=== PATIENT | female | born 1940 | race Caucasian/White ===

== ENCOUNTER 2018-03-05 01:30 | Inpatient (IN) | payer OTHER, MEDICARE ==
[~2018-03-05] VITALS: Ht 152.4 cm; Wt 81.6 kg
[~2018-03-05 01:30] MED LIST: ALLEGRA ALLERG180 M1 PO; DETROL LA2 M1 PO; EFFEXOR XR37.5 M1 PO; LYRICA100 M1 PO; METAMUCIL FIBE3.4 GM; MULTIVITAMINS1 EAC9 PO; NEXIUM20 M1 PO; NEXIUM40 M1 PO; NORVASC2.5 M1 PO; OMEGA 3-6-9 11200 MG PO; VITAMIN B-121000 MC3 PO; VITAMIN C500 M8; VITAMIN D1000 UNIT PO; ZESTORETIC 20-1 EAC1 PO
[2018-03-05] MEDS ORDERED: BACTRIM 400-801 EACH PO (09:59)
[2018-03-05] MEDS ORDERED: AMBIEN10 M1 PO (10:00)
--- NOTE | 2018-03-05 10:30 | Operative Report ---
Operative/Inv Procedure Report Surgery Date: 03/05/18 Name of Procedure: Right total hip arthroplasty Pre-Operative Diagnosis: Right hip primary osteoarthritis Post-Operative Diagnosis: Same with final pathology pending Estimated Blood Loss: 50ml to 100ml Surgeon/Scientific Associate: Marcelo COREAS,Ron Coronel Anesthesia: block Implants: Archbold secure fit femoral stem size 7 secure fit with a 132 neck angle Trident acetabulum size 52 36+0 Biolox femoral head Drains: None Specimens: Femoral head, acetabular reamings, soft tissue mass posterior lateral hip Microbiology: Urine Complications: None Condition: Stable Operative Indication: Patient is a 77-year-old woman with a long history of bilateral hip pain. She was being treated elsewhere for a period of time. She actually underwent a back surgery for treatment of her back problem but also lower extremity symptoms. Unfortunately, she had no significant relief of her lower extremity symptoms. Further evaluation was done. She was seen in our office for further evaluation and treatment. She was found to have degenerative changes of both hips. She was more symptomatically on the right side. Hip symptoms interfere with normal activities of daily living. She did get treatment conservatively for the hip but had only short-term relief. She wished to proceed with total hip arthroplasty after risks benefits and expectations were discussed which included but were not limited to persistent hip pain, need for subsequent surgery, infection, DVT, injury to blood vessel or nerve, anesthesia risks leg length discrepancy and dislocation. Patient did have recent abnormality in blood work due to a family history of coagulation problems. She had a IVC filter placed this past Monday to decrease risk of PE. She was evaluated by her vascular surgeon on Monday of last week and she was cleared by her medical doctor following placement of the IVC. Operative/Procedure Note Note: Patient was brought to the operating room and transferred to the operating table once under appropriate anesthesia the patient was placed into a left lateral decubitus position with right side up. All bony prominences were well-padded. Right lower extremity was prepped and draped in standard fashion. Preoperative IV antibiotic's were given prophylactically. A standard posterior lateral incision was made for anticipated superior approach to the hip. Incision was taken down sharply to the underlying fascia. The fascia was incised in line with the skin incision. Hip was internally rotated and piriformis was identified and reflected posteriorly. The posterior capsule was visualized. There appeared to be a soft tissue mass along the posterior lateral aspect of the hip above the femoral head. The capsule was incised. There was some adhesions to the underlying capsule. Capsule was tagged. The soft tissue mass was curetted out. It was not adhesed to the soft tissues above the hip and came out easily. This was sent as a separate specimen.. The superior and inferior portions of the posterior capsule were excised. Hip was dislocated. Severe degenerative changes of the femoral head were noted. Femoral neck cut was then made based on preoperative templating and intraoperative measurements. The acetabulum was then exposed with retractors anteriorly and inferiorly. Again end-stage general changes of the acetabular fossa were noted. Remaining degenerative labrum was excised circumferentially. Reaming started with a size 46 and advanced to a size 51 for anticipated insertion of a size 52 acetabular shell. I was satisfied with the reaming. I then used a size 50 trial to confirm circumferential reaming. I was satisfied that point. Copious irrigation of the acetabular fossa followed after the trial was removed. The definitive size 52 acetabular shell was impacted in place at the appropriate anteversion and abduction. This was based on anatomy as well as the RipCode tower. I then placed 2 screws in the safe zone in standard fashion by measuring and placing appropriate length screws. After irrigating the acetabular component I impacted the definitive liner to accept a 36 m femoral head. The locking mechanism was confirmed. I then placed a lap sponge in the acetabular fossa to protect the polyethylene during preparation of the proximal femur. The femur was then internally rotated 90 and flexed about 60. Retractors were placed. I then use a box osteotome to lateralize my insertion site. This was followed by hand reamers up to a size 7. I broached to a size 7. A left the last broach in place and did a trial reduction. The 132 neck angle match patient's anatomy. The hip was reduced. It was stable. No evidence of anterior instability with simultaneous extension and external rotation. No evidence of posterior stability with simultaneous internal rotation adduction and flexion to greater than 90. I then removed all trial components. Copious irrigation femoral canal followed. I then impacted the definitive size 7 femoral stem with a 132 neck angle. Excellent scratch fit. The trunnion was dried and then the definitive size 36+0 Biolox femoral head was impacted in place. The locking mechanism was confirmed. Hip was reduced. Again stability was confirmed. Leg lengths were confirmed. Closure started. Every level of closure was followed by copious irrigation. The capsule and piriformis were tacked back. Fascia was closed with interrupted #1 Vicryl suture. Subcutaneous tissues closed in 2 layers with 2-0 Vicryl and skin was closed with ruthie. Appropriate dressings were applied and patient was awakened and taken the recovery room in good condition. Blood loss was less than 100 mL Discharge Disposition: PACU
--- NOTE | 2018-03-05 13:42 | Admission Core Measures ---
Acute Coronary Syndrome (CM) ACS Core Measures Acute Coronary Syndrome Diagnosis No Congestive Heart Failure (NEW) CHF Core Measures Congestive Heart Failure Diagnosis No Cerebrovascular Accident CVA Core Measures CVA/TIA Diagnosis No Venous Thromboembolism VTE Core Fabiola (View Protocol) VTE Risk Factors Surgery No Mechanical VTE Prophylaxis d/t N/A MechProphylax Ordered No VTE Pharm Prophylaxis d/t NA PharmProphylax ordered Problem List As ranked by this Provider includes Assessment & Plan 1. Unilateral primary osteoarthritis, right hip HOME MEDS Home Med List Amlodipine (Norvasc) 2.5 MG TABLET 1 TAB PO DAILY HTN (Reported) Cholecalciferol (Vitamin D3) (Vitamin D) 1,000 UNIT TABLET 1 TAB PO DAILY SUPPLEMENT (Reported) Cyanocobalamin (Vitamin B-12) 1,000 MCG TABLET 1 TAB PO DAILY SUPPLEMENT ( Reported) Esomeprazole (Nexium) 40 MG CAPSULE.DR 1 CAP PO DAILY GERD/HIATAL HERNIA ( Reported) Esomeprazole Magnesium (Nexium) 20 MG CAPSULE.DR 1 CAP PO DAILY GERD/HIATAL HERNIA (Reported) Fexofenadine HCl (Princess Allergy) 180 MG TABLET 1 TAB PO DAILY ANTIHISTAMINE (Reported) Fish Oil/Borage/Flax/Om3,6,9#1 ([place] 3-6-9 1,200 MG Softgel) 1,200 MG CAPSULE 1 CAP PO DAILY SUPPLEMENT (Reported) Lisinopril/Hydrochlorothiazide (Zestoretic 20-25 MG Tablet) 20 MG-25 MG TABLET 1 TAB PO DAILY HTN (Reported) Multiple Vitamin (Multivitamins) 1 EACH TABLET 1 TAB PO DAILY SUPPLEMENT ( Reported) Pregabalin (Lyrica) 100 MG CAPSULE 1 CAP PO TID MOOD (Reported) Sulfamethoxazole/Trimethoprim (Bactrim 400-80 MG Tablet) 400 MG-80 MG TABLET 1 TAB PO BID UTI (Reported) Tolterodine Tartrate (Detrol LA) 2 MG CAP.ER.24H 1 CAP PO DAILY OAB (Reported ) Venlafaxine HCl (Effexor XR) 37.5 MG CAP.ER.24H 1 CAP PO DAILY MOOD (Reported ) Zolpidem Tartrate (Ambien) 10 MG TABLET 1 TAB PO QPMP SLEEP (Reported)
--- NOTE | 2018-03-05 13:47 | PN- Orthopedic ---
Subjective Subjective: POC Pt in PACU, no complaints of pain. Denies N/V, denies cp/sob/camp diaz in place, has no been OOB Objective Vital Signs and I&Os VSS, afebrile Physical Exam: gen- NAD resp- clear cardiac- rrr abd- soft, NT ext- R thign soft, dressing clean and dry. distal sensory and motor function intact Assessment/Plan Assessment/Plan 77yo F SP R NUSRAT POD0. stable prn pain management diaz to come out in AM reg diet, IVF to continue overnight dvt ppx- eliquis and alps. PT had IVF filter placed 03/02/18, access by R carotid PT- WBAT FU am labs dressing change POD2 reg home meds Core Measures Venous Thromboembolism VTE Risk Factors Surgery No Mechanical VTE Prophylaxis d/t N/A MechProphylax Ordered No VTE Pharm Prophylaxis d/t NA PharmProphylax ordered
[2018-03-05] MEDS ORDERED: PERCOCET 5-3251 EACH PO (13:51)
[2018-03-05] MEDS ORDERED: ELIQUIS2.5 M1 PO (13:51)
--- NOTE | 2018-03-05 13:54 | Patient Discharge Instructions ---
Discharge Instructions General Discharge Information You were seen/treated for: Right hip pain You had these procedures: Right total hip replacement Watch for these problems: Fever over 101, Drainage from wound, Increased redness and swelling around wound, Unable to bear weight on right lower extremity No bath, but you may shower: Yes Special Instructions: Daily dry dressing change Diet Continue normal diet: Yes Activity Activity Limited to: Weight bear as tolerated (with rolling walker) Acute Coronary Syndrome Inclusion Criteria At DC or during hospital stay patient has or had the following: ACS DIAGNOSIS No Discharge Core Measures Meds if any: Prescribed or Continued at Discharge Meds if any: NOT Prescribed or Continued at Discharge Congestive Heart Failure Inclusion Criteria At DC or during hospital stay patient has or had the following: CHF DIAGNOSIS No Discharge Core Measures Meds if any: Prescribed or Continued at Discharge Meds if any: NOT Prescribed or Continued at Discharge Cerebrovascular accident Inclusion Criteria At DC or during hospital stay patient has or had the following: CVA/TIA Diagnosis No Discharge Core Measures Meds if any: Prescribed or Continued at Discharge Meds if any: NOT Prescribed or Continued at Discharge Venous thromboembolism Inclusion Criteria VTE Diagnosis No VTE Type NONE VTE Confirmed by (Test) NONE Discharge Core Measures - Per Current guidelines, there needs to be overlap - treatment for the first 5 days of Warfarin therapy. - If discharged on Warfarin prior to 5 days of - overlap therapy, the patient will need to be - assessed for post discharge needs including - *Post discharge parental anticoagulation - *Warfarin and/or parental anticoagulation education - *Follow up date to check INR post discharge At least 5 days overlap therapy as Inpatient No Meds if any: Prescribed or Continued at Discharge Note: Overlap Therapy is Warfarin and Anticoagulant Meds if any: NOT Prescribed or Continued at Discharge
--- NOTE | 2018-03-05 13:55 | RADIOLOGY REPORT ---
EXAMINATION: XR HIP, RIGHT CLINICAL INFORMATION: Status post right total hip replacement. COMPARISON: None TECHNIQUE: AP portable view of the right hip. FINDINGS: Prosthetic components of the right total hip arthroplasty are appropriately aligned. No periprosthetic fracture. Gas from recent surgery is present in the surrounding soft tissues. Skin ruthie are present. IMPRESSION: Normal postoperative appearance of the right total hip prosthesis.
--- NOTE | 2018-03-05 13:58 | Surgical Discharge Summary ---
Visit Information Visit Dates Admission Date: 03/05/18 Discharge Date: 03/08/18 History of Present Illness Chief Complaint: Right hip pain Medical History Isolation History: Standard Surgical History Pertinent Surgical History: IVC filter placed on 03/02/2018 Review of Systems: As per [facility] Hospital Course Course Attending Physician: Marcelo COREAS,Homer Primary Care Physician: Oneil Brown MD Hospital Course: Patient presented to [facility] on 03/05/2018 for an elective right total hip replacement by Homer Robertson MD. Patient presents tolerated procedure well. Postoperatively her pain was well managed, she was tolerating a regular diet, she was voiding spontaneously, she was ambulating with physical therapy using a rolling walker and was cleared for discharge. She was instructed to follow-up in the office with Homer Robertson MD in 2 weeks and to call sooner if she had any questions or concerns. Discharge instructions were reviewed with the patient and she understood. Allergies: Coded Allergies: STATINS (leg pain 03/05/18) Disposition Summary Disposition Principal Diagnosis: Right hip osteoarthritis Additional Diagnosis: Status post right total hip replacement Discharge Disposition: home health services Discharge Instructions General Discharge Information Code Status: Full Code Patient's Diet: Regular diet Patient's Activity: Weight-bearing as tolerated with rolling walker Follow-Up Instructions/Appts: staple removal 2 weeks follow up with in 6 weeks Medications at Discharge Discharge Medications: Continue taking these medications: Amlodipine (Norvasc) 2.5 MG TABLET 1 Tablet ORAL DAILY Ascorbic Acid (Vitamin C) 500 MG TABLET Cholecalciferol (Vitamin D3) (Vitamin D) 1,000 UNIT TABLET 1 Tablet ORAL DAILY Cyanocobalamin (Vitamin B-12) 1,000 MCG TABLET 1 Tablet ORAL DAILY Esomeprazole (Nexium) 40 MG CAPSULE. 1 Capsule ORAL DAILY Fexofenadine HCl (Princess Allergy) 180 MG TABLET 1 Tablet ORAL DAILY Fish Oil/Borage/Flax/Om3,6,9#1 ([place] 3-6-9 1,200 MG Softgel) 1,200 MG CAPSULE 1 Capsule ORAL DAILY Lisinopril/Hydrochlorothiazide (Zestoretic 20-25 MG Tablet) 20 MG-25 MG TABLET 1 Tablet ORAL DAILY Multiple Vitamin (Multivitamins) 1 EACH TABLET 1 Tablet ORAL DAILY Pregabalin (Lyrica) 100 MG CAPSULE 1 Capsule ORAL THREE TIMES DAILY Psyllium Hydrophy Sugar Free (Metamucil Fiber Singles Packet) 3.4 GRAM POWD.PACK Tolterodine Tartrate (Detrol LA) 2 MG CAP.ER.24H 1 Capsule ORAL DAILY Venlafaxine HCl (Effexor XR) 37.5 MG CAP.ER.24H 1 Capsule ORAL DAILY Sulfamethoxazole/Trimethoprim (Bactrim 400-80 MG Tablet) 400 MG-80 MG TABLET 1 Tablet ORAL TWICE DAILY Zolpidem Tartrate (Ambien) 10 MG TABLET 1 Tablet ORAL Every night as needed Start taking the following new medications: Oxycodone HCl/Acetaminophen (Percocet 5-325 MG Tablet) 5 MG-325 MG TABLET 1-2 Tablet ORAL EVERY 4-6 HOURS as needed for postop pain Qty = 36 No Refills Apixaban (Eliquis) 2.5 MG TABLET 1 Tablet ORAL TWICE DAILY Qty = 84 No Refills Docusate Sodium (Colace) 100 MG CAPSULE 1 Capsule ORAL TWICE DAILY as needed for CONSTIPATION Qty = 60 No Refills Instructions: stool softener. hold for loose stool / diarrhea. Copies To: Stephanie COREAS,Oneil Baum
[2018-03-05 16:14] VITALS: BP 86/52
[2018-03-05 18:26] VITALS: BP 92/50
[2018-03-05 19:42] VITALS: BP 108/52
[2018-03-05 20:17] VITALS: BP 96/60
[2018-03-05 21:53] VITALS: BP 96/60
[2018-03-06 02:20] VITALS: BP 96/54
[2018-03-06 05:56] VITALS: BP 142/82
[2018-03-06 08:31] LABS: ABSOLUTE BASOPHIL COUNT 0 /CUMM (0.0-0.2); ABSOLUTE EOSINOPHIL COUNT 0 /CUMM (0.0-0.7); ABSOLUTE GRANULOCYTE CT 6.2 /CUMM (1.4-6.5); ABSOLUTE LYMPH COUNT 1.7 /CUMM (1.2-3.4); ABSOLUTE MONOCYTE COUNT 0.6 /CUMM (0.10-0.60); BASOPHIL % 0.3 % (0.0-2.0); EOSINOPHIL % 0.3 % (0-5); GRANULOCYTE % 72.8 % (42.2-75.2); HEMATOCRIT 31.6 % (37-47); MEAN CORPUSCULAR HGB 26.8 PG (27.0-31.0); MEAN CORPUSCULAR HGB CONC 32.9 G/DL (33.0-37.0); MEAN CORPUSCULAR VOLUME 81.5 FL (81.0-99.0); PLATELET COUNT 224 /CUMM (130-400); RBC DISTRIBUTION WIDTH 15.1 % (11.5-14.5); RED BLOOD CELL CT 3.88 /CUMM (4.20-5.40); WHITE BLOOD CELL COUNT 8.5 /CUMM (4.8-10.8)
[2018-03-06 10:00] VITALS: BP 128/74
--- NOTE | 2018-03-06 10:57 | PN- Orthopedic ---
See Addendum Subjective Subjective: pt sitting in chair, pain controlled with oral meds. Was OOB to bathroom, had BM. tolerating diet, no nausea. diaz in place. Denies paresthesias, N/V, cp/sob. Objective Vital Signs and I&Os Vital Signs Date Time Temp Pulse Resp B/P B/P Pulse O2 O2 Flow FiO2 Mean Ox Delivery Rate 03/06 1010 87 128/74 03/06 1009 87 128/74 03/06 0556 98.2 79 20 142/82 96 Room Air 03/06 0220 97.9 83 20 96/54 94 Room Air 03/05 2153 98.3 103 20 96/60 94 03/05 2017 98.3 103 20 96/60 94 03/05 1942 106 108/52 94 Room Air 03/05 1826 98.1 108 20 92/50 94 03/05 1614 98.3 103 92 86/52 20 Intake & Output 03/06 1600 03/06 0800 03/06 0000 03/05 1600 03/05 0800 03/05 0000 Intake Total 675 425 Output Total 1200 600 Balance -1200 675 -175 Intake, IV 525 225 Intake, Oral 150 200 Number 1 Bowel Movements Output, Urine 1200 600 Patient 180 lb 180 lb Weight Weight Bed scale Measurement Method Physical Exam: gen- NAD resp- clear cardiac- RRR abd- soft, NT ext- right thigh soft, dressing clean and dry. distal sensory and motor function intact. no calf tenderness Current Medications: Current Medications Sig/Kar Start time Last Medication Dose Route Stop Time Status Admin Acetaminophen 1,000 MG Q6H 03/05 2115 AC 03/06 N/A 1 UNIT IV 03/06 1529 1003 Acetaminophen 650 MG ONCE 03/05 0000 DC PO 03/05 2359 Amlodipine Besylate 2.5 MG DAILY 03/06 900 AC 03/06 PO 1010 Apixaban 2.5 MG BID 03/06 900 AC 03/06 PO 1010 Celecoxib 400 MG DAILY 03/06 900 AC 03/06 PO 1009 Celecoxib 400 MG ONCE 03/05 0000 DC PO 03/05 2359 Dexamethasone 10 MG ONCE 03/05 0000 DC IV 03/05 2359 Dextrose/Lactated 1,000 ML Q13H 03/05 1330 DC 03/05 Ringer's IV 03/06 022 1438 Diclofenac Sodium 1 DREA TID PRN 03/05 2115 AC 03/06 TOP 1003 Docusate Sodium 100 MG BID 03/05 1230 AC 03/06 PO 1010 Gabapentin 300 MG ONCE 03/05 0000 DC PO 03/05 2359 Hydrochlorothiazide 25 MG DAILY 03/06 0900 AC 03/06 PO 1010 Lisinopril 20 MG DAILY 03/06 0900 AC 03/06 PO 1009 Morphine Sulfate 2 MG Q2 HRS NEEDED PRN 03/05 2115 AC IV Morphine Sulfate 2 MG Q3P PRN 03/05 1330 DC IV Morphine Sulfate 4 MG Q3P PRN 03/05 1330 DC IV Omeprazole 40 MG DAILY AC 03/06 0700 AC 03/06 PO 0614 Ondansetron HCl 4 MG Q6P PRN 03/05 1330 AC IV Oxybutynin Chloride 2.5 MG BID 03/05 2100 AC 03/06 PO 1010 Oxycodone HCl 5 MG Q4 HRS NEEDED PRN 03/05 211 AC PO Oxycodone HCl 10 MG Q4 HRS NEEDED PRN 03/05 2115 AC 03/06 PO 1012 Oxycodone HCl 10 MG ONCE 03/05 0000 DC PO 03/05 2359 Oxycodone/ 1 TAB Q4P PRN 03/05 1330 DC Acetaminophen PO Oxycodone/ 2 TAB Q4P PRN 03/05 1330 DC 03/05 Acetaminophen PO 1444 Polyethylene Glycol 17 GM DAILY NEEDED PRN 03/05 1330 AC PO Pregabalin 100 MG TID 03/05 1400 AC 03/06 PO 1009 Scopolamine HBr 1 PAT ONCE 03/05 0000 DC TOP 03/05 2359 Senna/Docusate Sodium 2 TAB AT BEDTIME NEED.. 03/05 1330 AC PO Sodium Chloride 500 ML BOLUS ONE 03/05 1630 DC 03/05 IV 03/05 1729 1648 Vancomycin HCl 1,000 MG 2200 03/05 2200 DC 03/05 Sodium Chloride 250 ML IV 03/05 2259 2142 Vancomycin HCl 1,000 MG ONCE 03/05 0000 DC Sodium Chloride 250 ML IV 03/05 2359 Venlafaxine HCl 37.5 MG DAILY 03/06 0900 AC 03/06 PO 1010 Results Last 48 Hours of Labs: Laboratory Tests 03/06 617 Chemistry Sodium (137 - 145 mmol/L) 140 Potassium (3.5 - 5.1 mmol/L) 4.2 Chloride (98 - 107 mmol/L) 106 Carbon Dioxide (22 - 30 mmol/L) 26 Anion Gap (5 - 16) 8 BUN (7 - 17 mg/dL) 15 Creatinine (0.5 - 1.0 mg/dL) 0.8 Estimated GFR (>60 ml/min) > 60 BUN/Creatinine Ratio (7 - 25 %) 18.8 Hematology CBC w Diff NO MAN DIFF REQ WBC (4.8 - 10.8 /CUMM) 8.5 RBC (4.20 - 5.40 /CUMM) 3.88 L Hgb (12.0 - 16.0 G/DL) 10.4 L Hct (37 - 47 %) 31.6 L MCV (81.0 - 99.0 FL) 81.5 MCH (27.0 - 31.0 PG) 26.8 L MCHC (33.0 - 37.0 G/DL) 32.9 L RDW (11.5 - 14.5 %) 15.1 H Plt Count (130 - 400 /CUMM) 224 MPV (7.4 - 10.4 FL) 9.0 Gran % (42.2 - 75.2 %) 72.8 Lymphocytes % (20.5 - 51.1 %) 19.8 L Monocytes % (1.7 - 9.3 %) 6.8 Eosinophils % (0 - 5 %) 0.3 Basophils % (0.0 - 2.0 %) 0.3 Absolute Granulocytes (1.4 - 6.5 /CUMM) 6.2 Absolute Lymphocytes (1.2 - 3.4 /CUMM) 1.7 Absolute Monocytes (0.10 - 0.60 /CUMM) 0.6 Absolute Eosinophils (0.0 - 0.7 /CUMM) 0 Absolute Basophils (0.0 - 0.2 /CUMM) 0 Assessment/Plan Assessment/Plan 77yo F SP R NUSRAT POD1. stable prn pain management diaz to come out this morning reg diet dvt ppx- eliquis and alps. PT had IVF filter placed 03/02/18, access by R carotid PT- WBAT dressing change POD2 reg home meds dc planning for home with HS either POD2 or 3 Core Measures Venous Thromboembolism VTE Risk Factors Surgery No Mechanical VTE Prophylaxis d/t N/A MechProphylax Ordered No VTE Pharm Prophylaxis d/t NA PharmProphylax ordered
[2018-03-06 13:59] VITALS: BP 130/70
[2018-03-06 18:30] VITALS: BP 99/50
[2018-03-06 22:05] VITALS: BP 92/60
[2018-03-07 06:20] VITALS: BP 112/60
--- NOTE | 2018-03-07 08:21 | PN- Orthopedic ---
See Addendum Subjective Subjective: Reports pain controlled. Tolerating diet. No nausea. +bm yesterday. Out of bed with PT yesterday. No dizziness. No shortness of breath. No chest pains. Voiding without difficulty. Her goal is to go home. Objective Vital Signs and I&Os Vital Signs Date Time Temp Pulse Resp B/P B/P Pulse O2 O2 Flow FiO2 Mean Ox Delivery Rate 03/07 06 98.7 87 18 112/60 95 Room Air 03/06 2205 97.9 75 18 92/60 93 03/06 1830 98.3 84 18 99/50 94 Room Air 03/06 1359 97.0 84 18 130/70 96 Room Air 03/06 1010 87 128/74 03/06 1009 87 128/74 03/06 1000 98.8 87 18 128/74 97 Room Air Intake & Output 03/07 1600 03/07 0800 03/07 0000 03/06 1600 03/06 0800 03/06 0000 Intake Total 360 400 925 675 425 Output Total 300 1650 600 Balance 60 400 -725 675 -175 Intake, IV 175 525 225 Intake, Oral 360 400 750 150 200 Number 2 Bowel Movements Output, Urine 300 1650 600 Patient 180 lb 180 lb Weight Physical Exam: General - alert & oriented x 3. comfortable. no acute distress. Lungs - clear bilaterally. no w/r/r. Cardiac - s1s2. reg. Abdomen - soft. nontender. Extremities - warm bilaterally. no c/c/e. right hip dressing changed. incision well approximated with ruthei. no erythema or exudates. calves soft and nontender b/l. nvi. Current Medications: Current Medications Sig/Kar Start time Last Medication Dose Route Stop Time Status Admin Acetaminophen 1,000 MG Q6H 03/05 2115 DC 03/06 N/A 1 UNIT IV 03/06 1529 1501 Amlodipine Besylate 2.5 MG DAILY 03/06 900 AC 03/06 PO 1010 Apixaban 2.5 MG BID 03/06 900 AC 03/06 PO 194 Celecoxib 400 MG DAILY 03/06 900 AC 03/06 PO 1009 Diclofenac Sodium 1 DREA TID PRN 03/05 2115 AC 03/07 TOP 0642 Docusate Sodium 100 MG BID 03/05 1230 AC 03/06 PO 1949 Hydrochlorothiazide 25 MG DAILY 03/06 09 AC 03/06 PO 1010 Lisinopril 20 MG DAILY 03/06 09 AC 03/06 PO 1009 Morphine Sulfate 2 MG Q2 HRS NEEDED PRN 03/05 211 AC 03/06 IV 1303 Omeprazole 40 MG DAILY AC 03/06 07 AC 03/07 PO 0630 Ondansetron HCl 4 MG Q6P PRN 03/05 1330 AC IV Oxybutynin Chloride 2.5 MG BID 03/05 2100 AC 03/06 PO 1949 Oxycodone HCl 5 MG Q4 HRS NEEDED PRN 03/05 211 AC PO Oxycodone HCl 10 MG Q4 HRS NEEDED PRN 03/05 211 AC 03/07 PO 0631 Patient Medication 1 ED ONE ONE 03/06 1630 DC Teaching ED 03/06 1631 Polyethylene Glycol 17 GM DAILY NEEDED PRN 03/05 1330 AC PO Pregabalin 100 MG TID 03/05 1400 AC 03/06 PO 1949 Senna/Docusate Sodium 2 TAB AT BEDTIME NEED.. 03/05 1330 AC PO Venlafaxine HCl 37.5 MG DAILY 03/06 09 AC 03/06 PO 1010 Zolpidem Tartrate 10 MG AT BEDTIME 03/06 2100 AC 03/06 PO 1949 Results Last 48 Hours of Labs: Laboratory Tests 03/06 617 Chemistry Sodium (137 - 145 mmol/L) 140 Potassium (3.5 - 5.1 mmol/L) 4.2 Chloride (98 - 107 mmol/L) 106 Carbon Dioxide (22 - 30 mmol/L) 26 Anion Gap (5 - 16) 8 BUN (7 - 17 mg/dL) 15 Creatinine (0.5 - 1.0 mg/dL) 0.8 Estimated GFR (>60 ml/min) > 60 BUN/Creatinine Ratio (7 - 25 %) 18.8 Hematology CBC w Diff NO MAN DIFF REQ WBC (4.8 - 10.8 /CUMM) 8.5 RBC (4.20 - 5.40 /CUMM) 3.88 L Hgb (12.0 - 16.0 G/DL) 10.4 L Hct (37 - 47 %) 31.6 L MCV (81.0 - 99.0 FL) 81.5 MCH (27.0 - 31.0 PG) 26.8 L MCHC (33.0 - 37.0 G/DL) 32.9 L RDW (11.5 - 14.5 %) 15.1 H Plt Count (130 - 400 /CUMM) 224 MPV (7.4 - 10.4 FL) 9.0 Gran % (42.2 - 75.2 %) 72.8 Lymphocytes % (20.5 - 51.1 %) 19.8 L Monocytes % (1.7 - 9.3 %) 6.8 Eosinophils % (0 - 5 %) 0.3 Basophils % (0.0 - 2.0 %) 0.3 Absolute Granulocytes (1.4 - 6.5 /CUMM) 6.2 Absolute Lymphocytes (1.2 - 3.4 /CUMM) 1.7 Absolute Monocytes (0.10 - 0.60 /CUMM) 0.6 Absolute Eosinophils (0.0 - 0.7 /CUMM) 0 Absolute Basophils (0.0 - 0.2 /CUMM) 0 Assessment/Plan Assessment/Plan This 77 year old female with hx htn, gerd, diverticulitis, allergies, family history of blood clots s/p ivc filter, POD#2 s/p Right total hip arthroplasty for primary osteoarthritis tolerating diet pain controlled dressing changed continue eliquis BID - dvt ppx continue PT, with goal of home PT d/c planning, possible d/c with [facility] today vs tomorrow will d/w Core Measures Venous Thromboembolism VTE Risk Factors Surgery No Mechanical VTE Prophylaxis d/t N/A MechProphylax Ordered No VTE Pharm Prophylaxis d/t NA PharmProphylax ordered
[2018-03-07] MEDS ORDERED: COLACE100 M1 PO (08:30)
[2018-03-07 14:39] VITALS: BP 96/50
[2018-03-07 21:36] VITALS: BP 130/70
[2018-03-08 06:00] VITALS: BP 118/70
--- NOTE | 2018-03-08 08:07 | PN- Orthopedic ---
Subjective Subjective: Patient sitting in bed. Pain well controlled by medication. Has been out of bed and ambulated with physical therapy. Denies paresthesias. Denies chest pain shortness of breath headache or dizziness. Is tolerating regular diet and voiding, having bowel movements. Objective Vital Signs and I&Os Vital Signs Date Time Temp Pulse Resp B/P B/P Pulse O2 O2 Flow FiO2 Mean Ox Delivery Rate 03/08 06 98.5 90 18 118/70 95 Room Air 03/07 2136 98.6 86 18 130/70 96 03/07 1439 98.6 78 18 96/50 96 03/07 0846 86 98/64 03/07 0846 86 98/64 Intake & Output 03/08 1600 03/08 0800 03/08 0000 03/07 1600 03/07 0800 03/07 0000 Intake Total 120 900 360 400 Output Total 300 300 Balance 120 600 60 400 Intake, IV 20 Intake, Oral 100 900 360 400 Output, Urine 300 300 Patient 180 lb Weight Physical Exam: Generalno acute distress Respiratoryclear Cardiacregular rate and rhythm Abdomenobese, nontender Extremitiesright thigh soft, dressing clean and dry. No calf tenderness. Distal sensory and motor function intact. 2+ DP pulse on right foot Current Medications: Current Medications Sig/Kar Start time Last Medication Dose Route Stop Time Status Admin Amlodipine Besylate 2.5 MG DAILY 03/06 900 AC 03/06 PO 1010 Apixaban 2.5 MG BID 03/06 09 AC 03/07 PO 2049 Celecoxib 400 MG DAILY 03/06 09 AC 03/07 PO 0845 Diclofenac Sodium 1 DREA TID PRN 03/05 2115 AC 03/07 TOP 0642 Docusate Sodium 100 MG BID 03/05 1230 AC 03/07 PO 2049 Hydrochlorothiazide 25 MG DAILY 03/06 09 AC 03/07 PO 0845 Lisinopril 20 MG DAILY 03/06 09 AC 03/06 PO 1009 Morphine Sulfate 2 MG Q2 HRS NEEDED PRN 03/05 2115 AC 03/06 IV 1303 Omeprazole 40 MG DAILY AC 03/06 07 AC 03/08 PO 0622 Ondansetron HCl 4 MG Q6P PRN 03/05 1330 AC 03/07 IV 205 Oxybutynin Chloride 2.5 MG BID 03/05 2100 AC 03/07 PO 2049 Oxycodone HCl 5 MG Q4 HRS NEEDED PRN 03/05 2115 AC PO Oxycodone HCl 10 MG Q4 HRS NEEDED PRN 03/05 211 AC 03/08 PO 0146 Patient Medication 1 ED ONE ONE 03/07 1200 DC Teaching ED 03/07 1201 Polyethylene Glycol 17 GM DAILY NEEDED PRN 03/05 1330 AC PO Pregabalin 100 MG TID 03/05 1400 AC 03/07 PO 2049 Senna/Docusate Sodium 2 TAB AT BEDTIME NEED.. 03/05 1330 AC PO Venlafaxine HCl 37.5 MG DAILY 03/06 0900 AC 03/07 PO 0845 Zolpidem Tartrate 10 MG AT BEDTIME 03/06 2100 AC 03/07 PO 2049 Assessment/Plan Assessment/Plan This 77 year old female with hx htn, gerd, diverticulitis, allergies, family history of blood clots s/p ivc filter, POD#3 s/p Right total hip arthroplasty for primary osteoarthritis tolerating diet pain controlled dressing changed continue eliquis BID - dvt ppx continue PT, with goal of home PT d/c planning, possible [facility] Core Measures Venous Thromboembolism VTE Risk Factors Surgery No Mechanical VTE Prophylaxis d/t N/A MechProphylax Ordered No VTE Pharm Prophylaxis d/t NA PharmProphylax ordered
[2018-03-08 11:00] VITALS: BP 120/60
== END 2018-03-08 13:35 | disposition home health service (06) | DRG 470 ==
LOC: SDA 01:30 → ENRESERV 12:59 → ENTRNSPT 13:31 → EDTRNSPT 13:40 → EDTRNSPTSTS 13:40 → 2NA 13:58 → CMPTRNSPT 14:01 → ENPENDDIS 03-08 11:05 → ENTRNSPT 03-08 13:29 → EDTRNSPT 03-08 13:30 → EDTRNSPTSTS 03-08 13:30 → 2NA 03-08 13:35 → CMPTRNSPT 03-08 13:47
PROVIDERS: Physician Assistant Surgical
PROC: 0SR904A Replacement of Right Hip Joint with Ceramic on Polyethylene Synthetic Substitute, Uncemented, Open Approach (ICD-10-PCS; principal; 2018-03-05)
DX: M16.11 Unilateral primary osteoarthritis, right hip (principal); E66.9 Obesity, unspecified; Z68.35 Body mass index [BMI] 35.0-35.9, adult; K21.9 Gastro-esophageal reflux disease without esophagitis; K44.9 Diaphragmatic hernia without obstruction or gangrene; E78.5 Hyperlipidemia, unspecified; Z85.3 Personal history of malignant neoplasm of breast; I10 Essential (primary) hypertension; Z98.1 Arthrodesis status; Z96.653 Presence of artificial knee joint, bilateral; Z90.49 Acquired absence of other specified parts of digestive tract
CPT/HCPCS: 2NAP; 36415; 36592; 73501; 82436; 87086; 88304; 88305; 97110-GO; 97116-GO; 97161-GP; 97530-GO; J0131; J1100; J2405; J3370; J7040